=== PATIENT | male | born 1970 | race Caucasian/White ===

== ENCOUNTER 2016-07-18 18:41 | Emergency (ER) | payer OTHER | END 2016-07-18 20:04 | disposition home or self-care (01) | LOC: ER1 18:41 | DX: T15.02XA Foreign body in cornea, left eye, initial encounter (principal); F17.210 Nicotine dependence, cigarettes, uncomplicated; Z79.891 Long term (current) use of opiate analgesic; X58.XXXA Exposure to other specified factors, initial encounter; Y93.89 Activity, other specified | CPT/HCPCS: 99283 ==

== ENCOUNTER 2016-08-27 16:37 | Emergency (ER) | payer OTHER | END 2016-08-27 18:51 | disposition home or self-care (01) | LOC: ER1 16:37 | DX: T15.01XA Foreign body in cornea, right eye, initial encounter (principal); F17.210 Nicotine dependence, cigarettes, uncomplicated; X58.XXXA Exposure to other specified factors, initial encounter; Z79.899 Other long term (current) drug therapy | CPT/HCPCS: 65205; 99283 ==